=== PATIENT | female | born 1955 | race Caucasian/White ===

== ENCOUNTER 2021-04-07 18:24 | Emergency (ER) | payer MEDICARE, SELFPAY ==
[2021-04-07 18:28] VITALS: PULSE 65; RESP 18; TEMP 36.9; O2SAT 100
--- NOTE | 2021-04-07 18:28 | DI.RAD.S_ITS ---
PROCEDURE: XR KNEE LT 3V INDICATIONS: unable to bear wt no known injury TECHNIQUE: 3 views of the knee were acquired. COMPARISON: None. FINDINGS: Bones: No fractures or dislocations. No suspicious bony lesions. Soft tissues: No joint effusion. No suspicious soft tissue calcifications. IMPRESSION: A unremarkable left knee radiographs Approved by: Les Wilkinson M.D. on 04/07/2021 at 18:00
--- NOTE | 2021-04-07 18:36 | ED_ITS ---
HPI - Extremity Injury (Lower) General Chief Complaint: Extremity Injury, Lower Stated Complaint: UNABLE TO BARE WEIGHT LEFT KNEE Time Seen by Provider: 04/07/21 18:34 Source: patient Mode of arrival: Wheelchair History of Present Illness HPI Narrative: Patient is a 65-year-old female who presents with 3 weeks of left knee pain. She does not remember any injury or fall. As they are currently in the process of moving she has been doing a lot of ups and Downs. She bought a knee brace 1 week ago and it really seems to have helped. She said yesterday she was doing well she has been taking Tylenol and aspirin as needed for pain. Tonight she got of the car for dinner and had sudden onset of worsening pain. She is unable to bear weight. She denies numbness or tingling. No pain in her calf. Pain starts in her knee joint and goes down her tibia and up into her thigh. She denies any hip pain. She does not take medicine daily she does not go to a doctor. They are to drive to [place] in 5 days to get the rest of their belongings. Related Data Previous Rx's Medication Instructions Recorded hydrocodone 5 mg-acetaminophen 325 1 tab PO Q6H PRN #10 tab 04/07/21 mg tablet Review of Systems Review of Systems Narrative: GENERAL: Denies chills,fever HEENT: Denies throat pain RESPIRATORY: Denies dyspnea, cough, wheezing CARDIOVASCULAR: Denies chest pain, palpitations GASTROINTESTINAL: Denies nausea, vomiting MUSCULOSKELETAL: See HPI SKIN: No rash, no laceration, no pruritus NEUROLOGIC: Denies weakness, dizziness, headache, numbness 8 point review of systems is negative except for those stated above and HPI Exam Initial Vital Signs Initial Vital Signs: Vital Signs Temperature 98.5 F 04/07/21 18:28 Pulse Rate 65 04/07/21 18:28 Respiratory Rate 18 04/07/21 18:28 Pulse Oximetry 100 04/07/21 18:28 GENERAL: Alert well-appearing 65-year-old female CARDIOVASCULAR: peripheral pulses in tact, cap refill <2 sec RESPIRATORY: No respiratory distress, speaks in full sentences without difficulty EXTREMITIES: Normal range of motion, no clubbing or edema. Neurovascularly intact Left lower extremity knee is stable but slightly swollen non erythematous distal pedal pulse intact calf is soft. Pelvis stable no lefthip pain NEUROLOGICAL: Cranial nerves II through XII grossly intact. Normal gait and speech. SKIN: Warm, dry, no petechiae, no rashes or lesions. Course Orders Ordered: ED Orders 04/07/21 18:28 XR knee LT 3V Stat Discontinued Medications Ketorolac Tromethamine (Ketorolac 30 Mg/Ml Vial) 30 mg IM NOW ONE Stop: 04/07/21 18:51 Last Admin: 04/07/21 19:03 Dose: 30 mg Documented by: Vital Signs Vital signs: Vital Signs - 8 hr 04/07/21 18:28 Temperature 98.5 F Pulse Rate 65 Respiratory Rate 18 Pulse Oximetry 100 [facility] - Extremity Injury (Lower) Imaging Data Extremity x-ray #1: Radiologist's Impression: PROCEDURE:? XR KNEE LT 3V ? INDICATIONS:? unable to bear wt no known injury ? TECHNIQUE:? 3 views of the knee were acquired.? ? COMPARISON:? None. ? FINDINGS:? ? Bones:? No fractures or dislocations.? No suspicious bony lesions.? ? Soft tissues:? No joint effusion.? No suspicious soft tissue calcifications.? ? ? IMPRESSION:? A unremarkable left knee radiographs ? ? ? Approved by: Les Wilkinson M.D. on 04/07/2021 at 18:00? [facility] Narrative Medical decision making narrative: Patient is given Toradol for pain. X-ray is negative no specific injury is may need outpatient MRI. She is given Orthopedics information and PCP information to follow-up. Knee immobilizer placed by nursing staff and she is given a cane. Discharge Plan Departure Patient Disposition: Home Clinical Impression: Left knee sprain Qualifiers: Encounter type: initial encounter Involved ligament of knee: unspecified ligament Qualified Code(s): S83.92XA - Sprain of unspecified site of left knee, initial encounter Instructions: DI for Knee Sprain Activity Restrictions/Additional Instructions: At this time your diagnosed with a knee sprain Wear knee brace during the day while active. He may elevate and ice 20-30 minutes at a time. Use as needed. May increase weight-bearing as tolerated. You likely need an outpatient MRI Medications: Motrin 600 mg every 6-8 hours if needed for [id number] pain [place] 1 tablet every 6 hours if needed for severe pain or before bed (this does have 325 mg of Tylenol) Tylenol 650 mg every 6 hours if needed [id number] pain-NO MORE THAN 4000 MG OF TYLENOL IN 24 HOURS AND NO MORE THAN 1000 AT 1 TIME Please follow-up with primary care provider in 2-3 days Please follow-up with Orthopedics, you may call to schedule appointment Please return to the emergency department if you should have any increasing pain, redness, fever, chest pain, shortness of breath or any other new or concerning symptoms CONTROLLED SUBSTANCE DISCHARGE (Narcotoic/benzodiazepine/Flexeril/Phenergan) 1. You have been prescribed narcotic medications, it does have acetaminophen/Tylenol/paracetamol in it, DO NOT TAKE MORE THAN 4,00mg in 24 hours of Tylenol. TRAMADOL DOES NOT CONTAIN TYLENOL 2. Please understand that we cannot provide further refills of narcotics, benzodiazepines or controlled substances through the ED and her pain management will need to be through your provider. 3. While on these medications you cannot drive or operate heavy machinery. 4. You cannot sign legal documents or perform any duties such as this. 5. As long as you're taking opiate pain medications he should also be taking a stool softener such as Colace, Dulcolax, MiraLAX or prune juice, to help avoid constipation. Prescriptions: New hydrocodone-acetaminophen 5-325 mg tablet 1 tab PO Q6H PRN (Reason: pain) Qty: 10 RF: 0 Referrals: [facility] [Provider Group] [facility] [Outside]
--- NOTE | 2021-04-07 18:36 | PC.NURSE ---
Patient reports having left knee pain for some time, has been very active, moving and packing things. Started wearing a knee brace which seemed to be helpful and alleviate some pain. Yesterday had a good day without the knee brace, today stepped out of vehicle with knee brace on and had unbearable pain. Some mild swelling noted to medial aspect of knee. Has tried 7 homeopathic remedies at home.
[2021-04-07] MEDS: KETOROLAC 30 MG/ML VIAL IM (19:03)
== END 2021-04-07 19:35 | disposition home or self-care (01) ==
PROVIDERS: Emergency Provider Emergency Medicine
DX: S83.92XA Sprain of unspecified site of left knee, initial encounter (principal)
CPT/HCPCS: 73562; 96372; 99283; 99284; J1885

== ENCOUNTER → 2025-06-08 10:59 | Outpatient (CLI) | payer MEDICARE, SELFPAY ==
--- NOTE | 2025-06-08 11:39 | EKG_ITS ---
[facility] [address] [place] [address] Test Date: 2025-06-08 Pat Name: Laura Benites Department: Room: Gender: Female [employer]: : [id number] Requested By: Order Number: [id number] Reading MD: Terence Okeefe MD Measurements Intervals [place] Rate: 60 P: 0 AR: 156 QRS: -15 QRSD: 78 T: 15 QT: 388 QTc: 388 Interpretive Statements Normal sinus rhythm Minimal voltage criteria for LVH, may be normal variant ( R in aVL ) Electronically Signed On 06-08-2025 12:03:24 PST by Terence Okeefe MD
[2025-06-08 11:47] LABS: Add Manual Diff / Slide Review NO; Hematocrit 40.9 % (36-46); Hemoglobin 13.9 g/dL (12.0-16.0); Lymphocytes Absolute Auto 1800 /uL (1100-4500); Mean Corpuscular HGB Conc 33.9 % (30-36); Mean Corpuscular Hemoglobin 30.8 PG (26-34); Mean Corpuscular Volume 90.8 fL (80-100); Platelet Count 233 X10^3/uL (150-400)
[2025-06-08 12:10] LABS: Hemoglobin A1C% w Est Avg Glu 5.2 % (4.0-6.0)
[2025-06-08 12:40] LABS: Albumin 4.8 g/dL (3.5-5.0); Blood Urea Nitrogen 16 mg/dL (7-17); Calcium 10.3 mg/dL (8.4-10.2); Carbon Dioxide 25 mmol/L (22-32); Chloride 106 mmol/L (98-107); Estimated Glomerular Filt Rate > 60 mL/min (>60); Glucose 97 mg/dL (70-99); HEMOLYSIS < 15 (0-50); Potassium 4.8 mmol/L (3.4-5.1); Sodium 140 mmol/L (137-145)
[2025-06-08 12:50] LABS: Prealbumin 21.1 mg/dL (17.6-36.0)
[2025-06-08 14:17] LABS: Vitamin D 25 Hydroxy (D3) 20.8 ng/mL (30.0-100.0)
== END ==
PROVIDERS: PCP Nurse Practitioner Family; Referring Provider Nurse Practitioner Family; Visit Provider Orthopaedic Surgery Adult Reconstructive Orthopaedic Surgery
DX: Z01.818 Encounter for other preprocedural examination (principal); M25.552 Pain in left hip
CPT/HCPCS: 36415; 80048; 82040; 82306; 83036; 84134; 85025; 93005; 93010